=== PATIENT | female | born 1990 | race Caucasian/White ===

== ENCOUNTER 2017-07-24 19:56 | Observation (INO) | payer OTHER ==
[~2017-07-24] VITALS: Ht 160 cm; Wt 72.0 kg
[~2017-07-24 19:56] MED LIST: CIPRO500 M1 PO; FLAGYL; PENTASA500 MG PO; PREDNISONE
[2017-07-24 22:11] LABS: HEMATOCRIT 28.8 % (36.0-46.0); MCH 24.3 PG (29.0-34.0); MCHC 30.9 G/DL (30.0-36.0); MCV 78.5 FL (83-99); MEAN PLAT.VOLUME 10.5 uM^3 (9.5-12.4); PLATELET COUNT 455 K/uL (156-360); RBC DIS.WIDTH-CV 17.2 % (11.8-14.6); RBC DIS.WIDTH-SD 49.5 % (39-53); RED BLOOD COUNT 3.67 M/uL (3.80-5.20); WHITE BLOOD COUNT 19.2 K/uL (4.1-10.2)
[2017-07-24 22:22] LABS: CHLORIDE 106 mEq/L (99-109); POTASSIUM 3.2 mEq/L (3.7-5.4); SODIUM 139 mEq/L (136-147)
[2017-07-24 22:25] LABS: GLUCOSE 107 mg/dL (70-99)
[2017-07-24 22:26] LABS: ANION GAP 12 MEQ/L (2-14); TOTAL BILIRUBIN 0.2 mg/dL (0.0-1.0)
[2017-07-24 22:28] LABS: ALKALINE PHOSPHATASE 69 IU/L (3-129); GFR ESTIMATE (CALCULATED) > 59 mL/min/
[2017-07-24 22:29] LABS: UREA NITROGEN (BUN) 12 mg/dL (9-23)
[2017-07-24 22:32] LABS: LIPASE 54 U/L (1.0-51.0)
[2017-07-24 22:42] LABS: QUANTITATIVE HCG < 4.0 MIU/ML
[2017-07-24 22:59] LABS: TROP-I INTERPRETATION NEGATIVE; TROPONIN-I < 0.01 ng/mL (0.0-0.30)
[2017-07-25 00:32] LABS: ADD MIUA? YES; BILIRUBIN NEGATIVE; BLOOD NEGATIVE; COLOR YELLOW ((YELLOW)); GLUCOSE (STRIP) NEGATIVE; KETONES NEGATIVE; LEUKOCYTES MODERATE; NITRITE POSITIVE; PROTEIN (STRIP) NEGATIVE; SPECIFIC GRAVITY 1.016 (1.000-1.030); UROBILINOGEN 0.2 MG/DL (0.2-1.0)
[2017-07-25 00:49] LABS: BACTERIA 1+ /HPF; EPITHELIAL CELLS RARE /HPF; MUCUS TRACE /LPF; RED BLOOD CELLS 0-5 /HPF (0-5); UCUL ADDED? YES; WHITE BLOOD CELLS 20-30 /HPF (0-5)
[2017-07-25 02:13] LABS: INFLUENZA A VIRAL ANTIGEN NEGATIVE; INFLUENZA B VIRAL ANTIGEN NEGATIVE
[2017-07-25 06:37] LABS: D-DIMER ELISA < 150.00 ng/mLDDU (<230)
[2017-07-25 06:50] LABS: TROP-I INTERPRETATION NEGATIVE; TROPONIN-I < 0.01 ng/mL (0.0-0.30)
[2017-07-25] MEDS ORDERED: PROVENTIL HFA6.7 GM IH (09:03)
[2017-07-25] MEDS ORDERED: OMEPRAZOLE40 M1 PO (09:03)
[2017-07-25] MEDS ORDERED: AMITRIPTYLINE H10 MG PO (09:04)
[2017-07-25] MEDS ORDERED: CYMBALTA60 MG PO (09:04)
[2017-07-25] MEDS ORDERED: ADVAIR 500/501 DISK IH (09:04)
[2017-07-25] MEDS ORDERED: DESYREL 150 MG150 MG PO (09:05)
[2017-07-25] MEDS ORDERED: ASPIRIN81 M2 PO (09:05)
[2017-07-25] MEDS ORDERED: ALPRAZOLAM1 MG PO (09:05)
[2017-07-25 12:06] LABS: TROP-I INTERPRETATION NEGATIVE; TROPONIN-I < 0.01 ng/mL (0.0-0.30)
[2017-07-25 12:22] LABS: IRON 28 MCG/DL (35-150)
[2017-07-25 12:34] LABS: FERRITIN 4 NG/ML (10-291)
[2017-07-25 13:50] VITALS: BP 113/71
[2017-07-25 18:19] LABS: HEMATOCRIT 28.9 % (36.0-46.0); MCH 23.8 PG (29.0-34.0); MCHC 29.4 G/DL (30.0-36.0); MEAN PLAT.VOLUME 11.1 uM^3 (9.5-12.4); PLATELET COUNT 434 K/uL (156-360); RBC DIS.WIDTH-CV 17.5 % (11.8-14.6); RBC DIS.WIDTH-SD 51.8 % (39-53); RED BLOOD COUNT 3.57 M/uL (3.80-5.20); WHITE BLOOD COUNT 17.6 K/uL (4.1-10.2)
[2017-07-25 20:30] VITALS: BP 118/79
[2017-07-25 21:30] LABS: HEMATOCRIT 28.4 % (36.0-46.0); MCH 24.1 PG (29.0-34.0); MCHC 29.9 G/DL (30.0-36.0); MCV 80.7 FL (83-99); MEAN PLAT.VOLUME 10.4 uM^3 (9.5-12.4); PLATELET COUNT 450 K/uL (156-360); RBC DIS.WIDTH-CV 17.7 % (11.8-14.6); RBC DIS.WIDTH-SD 51.7 % (39-53); RED BLOOD COUNT 3.52 M/uL (3.80-5.20); WHITE BLOOD COUNT 15.5 K/uL (4.1-10.2)
[2017-07-25 23:56] VITALS: BP 115/73
[2017-07-26 04:13] VITALS: BP 98/57
[2017-07-26 05:50] LABS: MCH 24.4 PG (29.0-34.0); MCHC 30.4 G/DL (30.0-36.0); MCV 80.5 FL (83-99); MEAN PLAT.VOLUME 10.5 uM^3 (9.5-12.4); PLATELET COUNT 425 K/uL (156-360); RBC DIS.WIDTH-CV 17.8 % (11.8-14.6); RBC DIS.WIDTH-SD 52.1 % (39-53); RED BLOOD COUNT 3.48 M/uL (3.80-5.20); WHITE BLOOD COUNT 12.3 K/uL (4.1-10.2)
[2017-07-26 06:03] LABS: INTER. NORMALIZED RATIO 1.1; PROTHROMBIN TIME 11.7 SEC (10.2-12.9)
[2017-07-26 06:13] LABS: ANION GAP 9 MEQ/L (2-14); CHLORIDE 104 MEQ/L (99-109); GFR ESTIMATE (CALCULATED) > 59 mL/min/; GLUCOSE 119 mg/dL (70-99); POTASSIUM 3.7 MEQ/L (3.7-5.4); SAMPLE HEMOLYSIS CHECK 0; SAMPLE ICTERIC CHECK 0; SAMPLE LIPEMIA CHECK 0; SODIUM 137 MEQ/L (136-147); UREA NITROGEN (BUN) 4 mg/dL (9-23)
[2017-07-26 10:03] VITALS: BP 116/69
[2017-07-26 12:06] VITALS: BP 115/57
[2017-07-26] MEDS ORDERED: BENZONATATE100 MG PO (12:16)
[2017-07-26] MEDS ORDERED: MOTRIN600 MG PO (12:17)
[2017-07-26] MEDS ORDERED: HYDROCODON-ACE1 EAC9 PO (12:18)
[2017-07-26] MEDS ORDERED: PYRIDIUM100 MG PO (12:18)
[2017-07-26] MEDS ORDERED: BACTRIM,SEPT1 TABLET PO (12:18)
[2017-07-26] MEDS ORDERED: IRON325 M1 PO (15:01)
== END 2017-07-26 15:14 | disposition home or self-care (01) ==
LOC: EME 19:56 → EDOF 07-25 05:11 → 5WEST 07-25 05:11 → ENRESERV 07-25 05:11 → 5WEST 07-25 13:20
PROVIDERS: Emergency Medicine; Hospitalist; Nurse Practitioner Family; Specialist
DX: N10 Acute pyelonephritis (principal); R07.89 Other chest pain; K50.90 Crohn's disease, unspecified, without complications; D64.9 Anemia, unspecified; F31.9 Bipolar disorder, unspecified; F41.9 Anxiety disorder, unspecified; R63.4 Abnormal weight loss; N83.202 Unspecified ovarian cyst, left side; F17.290 Nicotine dependence, other tobacco product, uncomplicated; Z88.8 Allergy status to other drugs, medicaments and biological substances; Z90.49 Acquired absence of other specified parts of digestive tract
CPT/HCPCS: 71020; 71260; 74177; 80048; 80048 91; 80053; 81003; 82728; 83540; 83605; 83690; 84466; 84484; 84702; 85027; 85379; 85610; 87040; 87077; 87086; 87177; 87186; 87493; 87502; 87506; 93005; 94640; 94640 76; 99202; 99281; 99284; C9113; G0378; J0696; J1170; J1650; J1956; J2270; J2405; J3480; J7030; J7050

== ENCOUNTER 2017-07-29 11:11 | Emergency (ER) | payer OTHER ==
[~2017-07-29] VITALS: Ht 160 cm; Wt 71.0 kg
[~2017-07-29 11:11] MED LIST changes: +ADVAIR 500/501 DISK IH; +ALPRAZOLAM1 MG PO; +AMITRIPTYLINE H10 MG PO; +ASPIRIN81 M2 PO; +BACTRIM,SEPT1 TABLET PO; +BENZONATATE100 MG PO; +CYMBALTA60 MG PO; +DESYREL 150 MG150 MG PO; +HYDROCODON-ACE1 EAC9 PO; +IRON325 M1 PO; +MOTRIN600 MG PO; +OMEPRAZOLE40 M1 PO; +PROVENTIL HFA6.7 GM IH; +PYRIDIUM100 MG PO
[2017-07-29 11:46] LABS: ADD MIUA? YES; BILIRUBIN NEGATIVE; BLOOD NEGATIVE; COLOR YELLOW ((YELLOW)); GLUCOSE (STRIP) NEGATIVE; KETONES NEGATIVE; LEUKOCYTES MODERATE; NITRITE NEGATIVE; PROTEIN (STRIP) NEGATIVE; UROBILINOGEN 0.2 MG/DL (0.2-1.0)
[2017-07-29 11:52] LABS: HEMATOCRIT 29.5 % (36.0-46.0); MCH 24.1 PG (29.0-34.0); MCHC 30.5 G/DL (30.0-36.0); MCV 78.9 FL (83-99); MEAN PLAT.VOLUME 10.2 uM^3 (9.5-12.4); PLATELET COUNT 460 K/uL (156-360); RBC DIS.WIDTH-CV 18.5 % (11.8-14.6); RBC DIS.WIDTH-SD 51.9 % (39-53); RED BLOOD COUNT 3.74 M/uL (3.80-5.20); WHITE BLOOD COUNT 13.6 K/uL (4.1-10.2)
[2017-07-29 11:59] LABS: BACTERIA 2+ /HPF; EPITHELIAL CELLS 2+ /HPF; MUCUS TRACE /LPF; RED BLOOD CELLS 0-5 /HPF (0-5); UCUL ADDED? YES; WHITE BLOOD CELLS 0-5 /HPF (0-5)
[2017-07-29 12:05] LABS: CHLORIDE 104 mEq/L (99-109); POTASSIUM 3.7 mEq/L (3.7-5.4); SODIUM 140 mEq/L (136-147)
[2017-07-29 12:07] LABS: GLUCOSE 84 mg/dL (70-99)
[2017-07-29 12:08] LABS: ANION GAP 13 MEQ/L (2-14)
[2017-07-29 12:09] LABS: TOTAL BILIRUBIN 0.2 mg/dL (0.0-1.0)
[2017-07-29 12:11] LABS: ALKALINE PHOSPHATASE 81 IU/L (3-129); GFR ESTIMATE (CALCULATED) > 59 mL/min/
[2017-07-29 12:12] LABS: UREA NITROGEN (BUN) 12 mg/dL (9-23)
[2017-07-29 12:22] LABS: QUANTITATIVE HCG < 4.0 MIU/ML
[2017-07-29] MEDS ORDERED: FLEXERIL10 MG PO (13:50)
[2017-07-29] MEDS ORDERED: PHENERGAN25 MG PR (13:50)
[2017-07-29] MEDS ORDERED: ROBITUSSIN NIG237 ML PO (13:50)
[2017-07-29] MEDS ORDERED: ZOFRAN ODT4 MG PO (13:50)
[2017-07-29 14:07] VITALS: BP 116/66
== END 2017-07-29 14:09 | disposition home or self-care (01) ==
LOC: EME 11:11
DX: R10.84 Generalized abdominal pain (principal); R05 Cough; R07.9 Chest pain, unspecified; R11.2 Nausea with vomiting, unspecified; R19.7 Diarrhea, unspecified; N83.202 Unspecified ovarian cyst, left side; I10 Essential (primary) hypertension; J45.909 Unspecified asthma, uncomplicated; Z79.82 Long term (current) use of aspirin; Z90.49 Acquired absence of other specified parts of digestive tract; Z87.891 Personal history of nicotine dependence
CPT/HCPCS: 80053; 81003; 84702; 85027; 87086; 94640; 99281; 99284; J1630

== ENCOUNTER 2017-08-28 22:37 | Emergency (ER) | payer OTHER ==
[~2017-08-28] VITALS: Ht 160 cm; Wt 75.0 kg
[~2017-08-28 22:37] MED LIST changes: +FLEXERIL10 MG PO; +PHENERGAN25 MG PR; +ROBITUSSIN NIG237 ML PO; +ZOFRAN ODT4 MG PO
[2017-08-28 22:59] LABS: ADD MIUA? YES; BILIRUBIN NEGATIVE; BLOOD NEGATIVE; COLOR STRAW ((YELLOW)); GLUCOSE (STRIP) NEGATIVE; KETONES NEGATIVE; LEUKOCYTES LARGE; NITRITE NEGATIVE; PROTEIN (STRIP) NEGATIVE; SPECIFIC GRAVITY 1.005 (1.000-1.030); UROBILINOGEN 0.2 MG/DL (0.2-1.0)
[2017-08-28 23:06] LABS: BACTERIA RARE /HPF; EPITHELIAL CELLS RARE /HPF; MUCUS TRACE /LPF; UCUL ADDED? YES
[2017-08-28 23:16] LABS: MCH 24.7 PG (29.0-34.0); MCHC 30.6 G/DL (30.0-36.0); MCV 80.8 FL (83-99); MEAN PLAT.VOLUME 10.6 uM^3 (9.5-12.4); PLATELET COUNT 371 K/uL (156-360); RBC DIS.WIDTH-CV 19.1 % (11.8-14.6); RED BLOOD COUNT 3.96 M/uL (3.80-5.20); WHITE BLOOD COUNT 10.6 K/uL (4.1-10.2)
[2017-08-28 23:33] LABS: CHLORIDE 105 mEq/L (99-109); POTASSIUM 3.9 mEq/L (3.7-5.4); SODIUM 140 mEq/L (136-147)
[2017-08-28 23:35] LABS: GLUCOSE 101 mg/dL (70-99)
[2017-08-28 23:36] LABS: ANION GAP 11 MEQ/L (2-14)
[2017-08-28 23:37] LABS: TOTAL BILIRUBIN 0.2 mg/dL (0.0-1.0)
[2017-08-28 23:39] LABS: ALKALINE PHOSPHATASE 69 IU/L (3-129); GFR ESTIMATE (CALCULATED) > 59 mL/min/
[2017-08-28 23:40] LABS: UREA NITROGEN (BUN) 9 mg/dL (9-23)
[2017-08-28 23:49] LABS: QUANTITATIVE HCG < 4.0 MIU/ML
[2017-08-29] MEDS ORDERED: CIPRO500 MG PO (03:14)
[2017-08-29] MEDS ORDERED: PROMETHAZINE HC25 M1 PO (03:14)
[2017-08-29] MEDS ORDERED: PERCOCET 5/31 TABLET PO (03:14)
[2017-08-29 03:46] VITALS: BP 124/84
== END 2017-08-29 04:18 | disposition home or self-care (01) ==
LOC: EME 22:37
DX: R10.9 Unspecified abdominal pain (principal); K50.90 Crohn's disease, unspecified, without complications; K21.9 Gastro-esophageal reflux disease without esophagitis; J45.909 Unspecified asthma, uncomplicated; I10 Essential (primary) hypertension; E11.9 Type 2 diabetes mellitus without complications; F41.9 Anxiety disorder, unspecified; F32.9 Major depressive disorder, single episode, unspecified; F31.9 Bipolar disorder, unspecified; Z90.49 Acquired absence of other specified parts of digestive tract; Z79.82 Long term (current) use of aspirin; Z88.0 Allergy status to penicillin; Z88.8 Allergy status to other drugs, medicaments and biological substances; F17.200 Nicotine dependence, unspecified, uncomplicated
CPT/HCPCS: 74177; 80053; 81003; 84702; 85027; 87086; 99281; 99285; J2270; J7030